=== PATIENT | female | born 1985 | race Caucasian/White ===

== ENCOUNTER 2025-02-23 11:09 | Emergency (ER) | payer MEDICAID, SELFPAY ==
[2025-02-23 11:10] VITALS: BMI 19.9
[2025-02-23 11:59] VITALS: BP 109/68; PULSE 68; RESP 18; TEMP 37; O2SAT 99
--- NOTE | 2025-02-23 12:07 | XR_ITS ---
Examination: Shoulder,right, 3 views Technique: Shoulder AP internal rotation, AP external rotation, Y view shoulder, 3 views Exam date and time :February 23, 2025, 1211 hours INDICATIONS: Injury to the shoulder 2 weeks ago, shoulder pain. FINDINGS: No shoulder fracture or dislocation. No foreign body. IMPRESSION: No shoulder fracture or dislocation.
--- NOTE | 2025-02-23 12:16 | EDNOTE_ITS ---
Upper Extremity Injury RME/HPI General Chief Complaint: Extremity Injury, Upper Stated Complaint: R) SHOULDER INJURY X 2 WKS Time Seen by Provider: 02/23/25 11:52 Source: patient Arrival date/time: 02/23/25 11:09 40-year-old female with no known medical history presents to the emergency room with a chief complaint of tenderness and pain to her right shoulder after an injury that occurred 2 weeks ago. Mode of arrival: ambulatory Limitations: no limitations Related Data Allergies Allergy/AdvReac Type Severity Reaction Status Date / Time Penicillins Allergy Unknown RASH Verified 02/23/25 11:13 milk AdvReac Severe DIARRHEA Verified 02/23/25 11:13 Review of Systems Review of Systems Systems Reviewed: All systems reviewed, normal except as documented Constitutional Constitutional: Reports system reviewed and no additional complaints, except as documented, Denies fatigue, Denies fever(s), Denies headache(s) and Denies weakness Eyes Eyes: Reports system reviewed and no additional complaints, except as documented, Denies blurry vision and Denies change in vision ENT Ears, Nose, Mouth, and Throat: Reports system reviewed and no additional complaints, except as documented, Denies otalgia, Denies headache(s), Denies nasal congestion, Denies throat swelling and Denies vertigo Cardiovascular Cardiovascular: Reports system reviewed and no additional complaints, except as documented, Denies chest pain, Denies dyspnea and Denies dyspnea on exertion Respiratory Respiratory: Reports system reviewed and no additional complaints, except as documented, Denies chest congestion, Denies cough, Denies dyspnea, Denies dyspnea on exertion and Denies wheezing Gastrointestinal Gastrointestinal: Reports system reviewed and no additional complaints, except as documented, Denies abdominal pain, Denies cramping, Denies nausea and Denies vomiting Genitourinary Genitourinary: Reports system reviewed and no additional complaints, except as documented Musculoskeletal Musculoskeletal: Reports system reviewed and no additional complaints, except as documented, Reports arthralgias, Denies back pain, Reports joint swelling and Reports limited range of motion Integumentary/Breasts Skin/Breast: Reports system reviewed and no additional complaints, except as documented and Denies wounds Neurologic Neurologic: Reports system reviewed and no additional complaints, except as documented, Denies confusion, Denies headache(s), Denies lack of coordination, Denies vertigo and Denies weakness Psychiatric Psychiatric: Reports system reviewed and no additional complaints, except as documented, Denies anxiety, Denies confusion, Denies depression, Denies paranoia, Denies suicidal ideation and Denies tactile hallucinations Endocrine Endocrine: Reports system reviewed and no additional complaints, except as documented and Denies fatigue Hematologic/Lymphatic Hematologic/Lymphatic: Reports system reviewed and no additional complaints, except as documented and Denies lymphadenopathy Allergic/Immunologic Allergic/Immunologic: Reports system reviewed and no additional complaints, except as documented, Denies throat swelling, Denies urticaria and Denies wheezing Past Medical History Social History SMOKING STATUS: Current every day smoker ED Exam General Limitations: Present no limitations General appearance: Present alert and in no apparent distress Head Head exam: Present atraumatic Eye Eye exam: Present normal appearance, PERRL and EOMI ENT ENT exam: Present normal exam, normal oropharynx and mucous membranes moist Neck Neck exam: Present normal inspection, full ROM and trachea midline Chest Chest inspection: Present normal inspection and symmetric chest wall rise Respiratory Respiratory exam: Present normal lung sounds bilaterally Cardiovascular Cardiovascular exam: Present regular rate, normal rhythm and normal heart sounds Abdominal Exam Abdominal exam: Present soft and normal bowel sounds Extremities Exam Extremities exam: Present normal inspection and full ROM Expanded Upper Extremity Exam Shoulder exam: Present tenderness, swelling and tenderness over AC joint; Absent full ROM Arm exam: Present normal inspection Elbow exam: Present normal inspection Forearm/Wrist exam: Present normal inspection Hand exam: Present normal inspection Vascular exam: Normal capillary refill Back Exam Back exam: Present normal inspection and full ROM Neurological Exam Neurological exam: Present alert, oriented X3 and CN II-XII intact Psychiatric Psychiatric exam: Present normal affect and normal mood Skin Skin exam: Present warm, dry, intact and normal color Course Quality Measures none Orders Category Date Time Status sling [Splint / Immobilizer] STAT Care 02/23/25 12:07 Active XR shoulder RT min 2V Stat Exams 02/23/25 12:07 Completed Acetaminophen Tab [Tylenol Tab] Med 02/23/25 12:07 Discontinued 650 mg PO X1 ONE Vital Signs Vital signs: Vital Signs Temperature 98.6 F 02/23/25 11:59 Pulse Rate 68 02/23/25 11:59 Respiratory Rate 18 02/23/25 11:59 Blood Pressure 109/68 02/23/25 11:59 Pulse Oximetry (%) 99 02/23/25 11:59 Oxygen Delivery Method Room Air 02/23/25 11:59 Extremity Injury MDM Narrative MDM Narrative:: 40-year-old female with no known medical history presents to the emergency room with a chief complaint of tenderness and pain to her right shoulder after an injury that occurred 2 weeks ago. Patient is hemodynamically stable and in no apparent distress Physical examination shows tenderness and pain to the patient's right shoulder. The patient also has limited range of motion and is unable to lift her arm above her head X-ray of the shoulder was completed and was negative for any acute findings. A sling was placed on the patient Patient was discharged and educated to follow-up with primary care provider in the next 24 to 48 hours and return to the emergency room for any evidence of worsening signs or symptoms Patient data External records reviewed:: [facility] previous records Clinical information provided by:: patient Social determinants that could affect healthcare access:: none Patient has the following chronic illnesses:: No chronic illness How is presenting disease/condition affected by chronic disease/condition?: no chronic disease Evaluation data The following diagnostics were reviewed and interpreted by me:: lab results and radiology exam(s) Lab and/or radiology exams considered but not ordered:: Labs and radiology exams considered in order Interpretation Summary: Shoulder [id number]: No shoulder fracture or dislocation. No foreign body. IMPRESSION: No shoulder fracture or dislocation. Medications / Prescriptions Medications or Prescriptions considered but not ordered:: Medication given Medication administrations:: Medication Administration History Discontinued Medications Acetaminophen (Acetaminophen 325 Mg Tablet) 650 mg PO X1 ONE Stop: 02/23/25 12:08 Medication given Consultations Consultation(s) initiated? (list below): No Diagnosis Upper Extremity Injury Differential Diagnosis: dislocation of shoulder, fracture of clavicle and other (Shoulder sprain) Most likely diagnosis given after review of the tests above:: Shoulder sprain Admission Indicated Admission indicated?: not indicated Admission Request Was there a request for admission?: No Disposition Plan Disposition Plan: Discharge Discharge Attestation Discharge Attestation: The patient and all family members were given an opportunity to ask questions and understood the discharge instructions. Discharge instructions specifically effects, indications for sooner follow up or return to the emergency department, and the expected course of current diagnosis. Patient condition: Stable Discharge Plan Plan Patient Disposition: HOME (Self Care) Discharge Disposition comment: Stable Prescriptions/Referrals Referrals: Loretta Brandt NP [Primary Care Provider] - In 1 week Problem List Clinical Impression: Shoulder sprain Patient/Caregiver Discharge Instructions Education Materials: ED Shoulder Sprain Additional Instructions: Please follow-up with your primary care provider in the next 24 to 48 hours X-ray of your shoulder was completed and was negative for any acute fracture or dislocation Please follow-up with your primary care provider as an MRI to check for any ligament damage or tears in your shoulder may be indicated For any evidence of worsening signs or symptoms return to the emergency room immediately Print Language: [place] Stand Alone Forms: [facility] Award Info., Patient Portal Info Letter PA/YOSELIN Supervising Physician VELVET/YOSELIN Supervising Physician: Dr. Salinas
[2025-02-23 13:36] VITALS: BP 126/62; PULSE 77; RESP 16; TEMP 36.6; O2SAT 98
== END 2025-02-23 13:37 | disposition home or self-care (01) ==
PROVIDERS: Emergency Provider Emergency Medicine; PCP Nurse Practitioner Family
DX: S43.401A Unspecified sprain of right shoulder joint, initial encounter (principal); X58.XXXA Exposure to other specified factors, initial encounter
CPT/HCPCS: 73030; 99284